=== PATIENT | male | born 1995 | race Native Hawaiian/Other Pacific Islander ===

== ENCOUNTER 2016-12-03 09:50 | Day surgery (SDC) | payer OTHER ==
[~2016-12-03] VITALS: Ht 182.9 cm; Wt 154.2 kg
[2016-12-03] VITALS (9 sets, daily range): BP systolic 125–141; BP diastolic 59–83; TEMP 97.8–99.2; Ht 182.9 cm; Wt 154.2 kg
[2016-12-03 05:43] LABS: PLATELET COUNT 247 K/uL (142-355)
[2016-12-03 06:14] LABS: POTASSIUM 3.3 mmol/L (3.6-5.2); SODIUM 138 mmol/L (136-145)
[~2016-12-03 09:50] MED LIST: ADIPEX-P37.5 M1 OR; HYDR25TA60 PO
[2016-12-04] VITALS: BP 113/56; TEMP 99.5
[2016-12-04 04:00] VITALS: BP 120/63; TEMP 98.5
[2016-12-04 08:00] VITALS: BP 143/76; TEMP 97.8
[2016-12-04 09:43] LABS: PLATELET COUNT 229 K/uL (142-355)
== END 2016-12-04 10:50 | disposition home or self-care (01) ==
LOC: OR 09:50 → MED/SURG 10:20 → ED 10:20 → OR 10:20
PROVIDERS: Emergency Medicine; Student in an Organized Health Care Education/Training Program
PROC: 0DTJ4ZZ Resection of Appendix, Percutaneous Endoscopic Approach (ICD-10-PCS; principal; 2016-12-03)
DX: K35.80 Unspecified acute appendicitis (principal)
CPT/HCPCS: 36415; 80053; 81000; 83690; 85027; 94760; 96365; 96372; 99284; J0330; J0690; J1170; J1644; J1885; J2001; J2405; J2704; J2710; J3010; J3490; Q9963

== ENCOUNTER 2019-03-30 13:38 | Outpatient (CLI) | payer OTHER | END 2019-03-30 22:19 | disposition home or self-care (01) | LOC: RAD 13:38 | DX: S99.821A Other specified injuries of right foot, initial encounter (principal) ==

== ENCOUNTER 2022-02-03 13:08 | Outpatient (CLI) | payer OTHER ==
[~2022-02-03] VITALS: Ht 180.3 cm; Wt 166.0 kg
[2022-02-03 13:39] VITALS: BP 125/66; TEMP 100.2
[2022-02-03 14:40] VITALS: BP 131/66; TEMP 99.5
[2022-02-03 14:55] VITALS: BP 130/68; TEMP 99.5
[2022-02-03 15:25] VITALS: BP 132/66; TEMP 100.3
== END 2022-02-03 18:56 | disposition home or self-care (01) ==
LOC: INF 13:08
PROVIDERS: ATTEND Family Medicine
DX: U07.1 COVID-19 (principal); R05.9 Cough, unspecified; R09.81 Nasal congestion; R11.0 Nausea; R50.9 Fever, unspecified
CPT/HCPCS: 96374; Q0222